=== PATIENT | female | born 1945 | race Caucasian/White ===

== ENCOUNTER 2022-05-02 13:12 | Outpatient (CLI) | payer MEDICARE, SELFPAY ==
[2022-05-02 14:14] LABS: INR 1.2; Prothrombin Time 14.4 Seconds (11.1-14.7)
[2022-05-02 14:15] LABS: Partial Thromboplastin Time 30.4 SECONDS (22.3-36.8)
[2022-05-02 15:54] LABS: Anion Gap 12 mmol/L (8-16); Blood Urea Nitrogen 63 mg/dL (7-17); Calcium 9.7 mg/dL (8.4-10.2); Carbon Dioxide 23 mmol/L (22-30); Chloride 105 mmol/L (98-107); Estimated Glomerular Filt Rate 31; Glucose 152 mg/dL (65-110); Potassium 3.8 mmol/L (3.4-5.0); Sodium 140 mmol/L (137-145)
== END 2022-05-02 13:13 | disposition home or self-care (01) ==
LOC: ANHSURGERY 13:27
PROVIDERS: Anesthesiology; PCP Family Medicine; Visit Provider Urology
DX: E11.9 Type 2 diabetes mellitus without complications (principal); N28.9 Disorder of kidney and ureter, unspecified; Z01.818 Encounter for other preprocedural examination
CPT/HCPCS: 36415; 80048; 85610; 85730

== ENCOUNTER 2022-05-06 01:12 | Day surgery (SDC) | payer MEDICARE, SELFPAY ==
[2022-04-29 14:48] VITALS: BMI 32.5
--- NOTE | 2022-04-29 15:00 | PC.NURSE ---
Report to the Outpatient Waiting Room, entrance under the green pavilion located off [facility], at time _1100_ on date _[id number]_. OR Time: _1pm_. Time changes happen often and if your time is changed the preop area will call you the afternoon before. - You and your visitor will be asked to self-screen and do not enter if you have any COVID symptoms. - Only one visitor and NO children visitors are allowed at this time. - The patient visitor is requested to leave or wait in car when not with patient due to restrictions. - A mask is required within the hospital. Patients may have clear liquids (water, carbonated beverages, clear teas, apple juice) until 3 hours prior to surgery with a maximum of 20 ounces. - No food from midnight until time of surgery Take the following medications with a SIP of water the morning of surgery: ____Pramipexole Medications to discontinue per physician ___Asprin stop 04-29-2022, Vitamin B-12 stop [id number] Please no make-up, nail venezuelan, hairspray, perfume, deodorant, or body powder the day of surgery. No jewelry (including any body piercings) or valuables the day of surgery, leave them at home. Please take a shower or bath the night before, or the morning of, surgery with an antibacterial soap. Wear comfortable, loose fitting clothing. - Jewelry must be removed prior to entering the operating room. Rings and piercings that are not removed may be cut off. - The hospital will not accept responsibility for valuables. - Please leave all valuables, including medications, at home the day of surgery. If you are going home after surgery, a licensed regional tanker truck driver must drive you home. - NO public transportation without another adult. - We recommend that an adult stay with you for 24 hours following discharge. - We also recommend that you do not drive, make important decision, drink alcoholic beverages, or take any drugs that were not prescribed by your health care provider for at least 24 hours after your discharge time. Follow any additional instructions given to you from your surgeon. If you or anyone in your household have experienced Covid symptoms in the past week, please notify your surgeon or the nurse liaison at the phone number below for possible testing. Telephone instructions given to __Patient and Daughter Lyn___and asked if any additional questions and then verbalized understanding. Patient advised to call surgeon office or pre surgery nurse liaison [phone] if any additional questions.
--- NOTE | 2022-05-03 10:21 | PM.IMHP ---
H&P: HPI History of Present Illness Date/Time: 05/03/22 10:21 Chief Complaint: Bladder lesion Narrative: This is a woman with recurrent urinary tract infections. Some of her urine cultures are actually normal. Cystoscopy reveals signs consistent with possible Hunner's ulceration Review of Systems Review of Systems: All systems reviewed & are unremarkable except as noted in HPI and below PMFSH Social History Social History Smoking status: Never smoker Spiritual care concerns: No Meds Home Medications and Allergies Home Medications Medication Instructions Recorded Confirmed Type aspirin 81 mg capsule 81 mg PO DAILY 04/29/22 04/29/22 History atorvastatin 20 mg tablet 20 mg PO QAM 04/29/22 04/29/22 History chlorthalidone 25 mg tablet 12.5 mg PO QAM 04/29/22 04/29/22 History cyanocobalamin (vitamin B-12) 500 500 mcg PO DAILY 04/29/22 04/29/22 History mcg tablet (Vitamin B-12) furosemide 40 mg tablet 40 mg PO QAM 04/29/22 04/29/22 History insulin glargine 100 unit/mL 15 unit subcut QPM 04/29/22 04/29/22 History subcutaneous solution (Lantus U-100 Insulin) melatonin 10 mg tablet 10 mg PO HS 04/29/22 04/29/22 History omeprazole 40 mg capsule,delayed 40 mg PO QAM 04/29/22 04/29/22 History release pramipexole 0.5 mg tablet 0.5 mg PO BID 04/29/22 04/29/22 History Allergies Allergy/AdvReac Type Severity Reaction Status Date / Time Penicillins Allergy Intermediate Rash Verified 04/29/22 14:42 Sulfa (Sulfonamide Allergy Intermediate Rash Verified 04/29/22 14:42 Antibiotics) Exam Narrative: No acute distress Normal breathing Alert right x3 Assessment and Plan Assessment and plan (1) 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 Understands risks of bleeding, infection, lack of efficacy, need for repeat procedures, damage to the bladder. She agrees to proceed
--- NOTE | 2022-05-06 07:16 | WPDHPUPDATE1 ---
History and Physical Update Update Date/Time: 05/06/22 07:16 History and Physical has been reviewed, including an updated exam of the patient. There are NO changes in the patient's condition. Risks, benefits, and alternatives have been discussed and questions answered. Patient agrees to proceed with procedure.
[2022-05-06 12:00] VITALS: BP 130/55; PULSE 67; RESP 16; TEMP 36.6; O2SAT 98
--- NOTE | 2022-05-06 12:04 | WPDANESEPPF ---
Anes - Initial Pre Proc Eval Procedure: Operation Date: 05/06/22 13:00 Proposed Procedures p Cystoscopy Bladder Biopsy with Steroid Injection - Cheo Hilario MD Date/Time: 05/06/22 12:04 Surgeon: Cheo Hilario MD Pre Op Diagnosis: hypervascular lesion of bladder Patient Data Age: 77 Gender: F Height: 1.6 m Weight: 83.2 kg Allergies Allergy/AdvReac Type Severity Reaction Status Date / Time Penicillins Allergy Intermediate Rash Verified 04/29/22 14:42 Sulfa (Sulfonamide Allergy Intermediate Rash Verified 04/29/22 14:42 Antibiotics) Home Medications Medication Instructions Recorded Confirmed Type aspirin 81 mg capsule 81 mg PO DAILY 04/29/22 04/29/22 History atorvastatin 20 mg tablet 20 mg PO QAM 04/29/22 04/29/22 History chlorthalidone 25 mg tablet 12.5 mg PO QAM 04/29/22 04/29/22 History cyanocobalamin (vitamin B-12) 500 500 mcg PO DAILY 04/29/22 04/29/22 History mcg tablet (Vitamin B-12) furosemide 40 mg tablet 40 mg PO QAM 04/29/22 04/29/22 History insulin glargine 100 unit/mL 15 unit subcut QPM 04/29/22 04/29/22 History subcutaneous solution (Lantus U-100 Insulin) melatonin 10 mg tablet 10 mg PO HS 04/29/22 04/29/22 History omeprazole 40 mg capsule,delayed 40 mg PO QAM 04/29/22 04/29/22 History release pramipexole 0.5 mg tablet 0.5 mg PO BID 04/29/22 04/29/22 History Patient hx anesthesia problems: other (low bp) Family hx anesthesia problems: none Results Review: All pre-operative results and documents have been reviewed as part of the pre-operative evaluation. [facility] Past Medical History Medical History (Updated 05/06/22 @ 12:06 by Mark Blackburn MD) Arthritis Bronchiectasis Depression Hyperlipidemia Hypertension Hypothyroid NALLELY (obstructive sleep apnea) Social History Social History Smoking status: Never smoker Living arrangements: with family Spiritual care concerns: No Anes - Eval Final PreProcedure Day of Procedure 05/06/22 12:04 Patient weight: obese Heart: regular rate and rhythm Lungs: decreased breath sounds Airway: Mallampati scale class II Neurological: alert and oriented Last oral intake: >/= 8 hours ASA classification: III Emergent: no Anesthetic plan: proceed Anesthesia type and monitoring: general GIVS and standard monitoring Results Review: All pre-operative results and documents have been reviewed as part of the pre-operative evaluation. Informed Consent: The patient's anesthetic plan and its attendant risks and benefits were discussed with the patient/family/POA. Questions were solicited and answers provided to the satisfaction of the patient/family/POA.
[2022-05-06 12:23] LABS: Glucose Point of Care 103 mg/dl (65-105)
[2022-05-06] MEDS: LACTATED RINGERS 1,000 ML 30 ML IV CONT (12:30)
[2022-05-06] MEDS: ceFAZolin 2 GM/D5W 50 ML 2 GM/50 ML BAG IVPB (12:47)
[2022-05-06] MEDS: LIDOCAINE HCL 2% GEL UROJET 10 ML PKG MUCOUS MEM (12:54)
[2022-05-06] MEDS: TRIAMCINOLONE ACET INJ 40 MG/ML VIAL 5 MG IM (12:59)
--- NOTE | 2022-05-06 13:13 | W.PM.PROC2 ---
Procedure Note - Detailed Date of Procedure 05/06/22 Pre-op Diagnosis hypervascular lesion of bladder Post-op Diagnosis Same Procedure Performed Cystoscopy, bladder biopsy, steroid injection Surgeon Cheo Hilario MD Anesthesia MAC Indications A woman with bladder pain and urgency. Cystoscopic findings are consistent with Hunner's ulceration. She is here today for biopsy and steroid injection. For of bleeding, infection, damage to the urinary tract, lack of cure of symptoms, lack of improvement or symptoms, need for repeat procedures, damage to the urinary tract. She agrees to proceed Findings Areas of inflammation on the dome consistent with Hunner's ulceration Description of Procedure She was correctly identified. Informed consent obtained. She from the operating room. She was given MAC anesthesia. She was placed in dorsal lithotomy position. All pressure points were padded. She was given appropriate perioperative antibiotics. A time-out performed. I examined the bladder. She had no trabeculations. Ureteral orifices were normal. There was no stones. On the back wall of the bladder there were areas consistent with Hunner's ulceration. This was remote from both ureteral orifice. This area was biopsied. It was sent for pathologic analysis. I fulgurated all lesions. I then injected my steroids. 2 mg total at a concentration of 40 milligrams/mill into the ulcerated areas. I reefed fulgurated though injection sites. Again all fulguration was done away from the ureteral orifices. There was no bleeding her low insufflation pressures. The bladder was drained. She was awakened transferred to PACU in stable condition Implants None Estimated Blood Loss 1 Pathology Yes (Bladder biopsy) Complications No immediate complications Condition Stable Disposition PACU
[2022-05-06 13:21] VITALS: BP 138/48; PULSE 58; RESP 12; O2SAT 95
[2022-05-06 13:29] LABS: Glucose Point of Care 116 mg/dl (65-105)
[2022-05-06 13:50] VITALS: BP 121/52; PULSE 72; RESP 14; O2SAT 99
[2022-05-06 14:20] VITALS: BP 118/52; PULSE 74; RESP 14
== END 2022-05-06 14:40 | disposition home or self-care (01) ==
PROVIDERS: PCP Family Medicine; Visit Provider Urology
PROC: 0TBB8ZX Excision of Bladder, Via Natural or Artificial Opening Endoscopic, Diagnostic (ICD-10-PCS; CPT 52204; principal; 2022-05-06 13:00)
DX: N30.10 Interstitial cystitis (chronic) without hematuria (principal); E78.5 Hyperlipidemia, unspecified; I10 Essential (primary) hypertension; E03.9 Hypothyroidism, unspecified; G47.33 Obstructive sleep apnea (adult) (pediatric); F32.A Depression, unspecified; E66.9 Obesity, unspecified; Z68.32 Body mass index [BMI] 32.0-32.9, adult; Z79.82 Long term (current) use of aspirin; Z79.4 Long term (current) use of insulin
CPT/HCPCS: 52204; 52283; 82948; 88305; A9270; J0690; J2704; J3010; J3301; J7120

== ENCOUNTER 2023-11-14 01:50 | Day surgery (SDC) | payer MEDICARE, SELFPAY ==
[2023-10-31 13:18] VITALS: BMI 33.3
--- NOTE | 2023-10-31 13:52 | PC.NURSE ---
Addendum entered by Madeleine Espinoza RN 10/31/23 16:15: CORRECTED MED LIST RECEIVED - [facility] CONTACTED (JOSEPHINE OSULLIVAN R.N.) AND INFORMED PT CAN HAVE TYLENOL IF NEEDED THE DAY OF SURGERY - UNDERSTANDING VOICED Original Note: PRE-OP INSTRUCTIONS, PLEASE READ CAREFULLY Report to the Outpatient Waiting Room, entrance under the green pavilion located off [facility], at time _0945_ on date _11/14/23_. Planned Procedure Time: _1145_. Time changes happen often and if your time is changed the preop area will call you the afternoon before. - You and your visitor will be asked to self-screen and do not enter if you have any COVID symptoms. - A mask is optional within the hospital at this time. Patients may have clear liquids (water, carbonated beverages, clear teas, apple juice) until 3 hours prior to surgery (0845 AM) with a maximum of 20 ounces. - No food from midnight until time of surgery Take the following medications with a SIP of water the morning of surgery: _CARVEDILOL, PRAMIPEXOLE_ DO NOT STOP ANY OF YOUR OTHER PRESCRIPTION MEDICATIONS PRIOR TO SURGERY ?EXCEPT THE FOLLOWING Medications to discontinue per SOLANO - _ASPIRIN 7 DAYS PRIOR TO SURGERY, Date to take last dose 11/06/23_ Please no make-up, nail greek, hairspray, perfume, deodorant, or body powder the day of surgery. No jewelry (including any body piercings) or valuables the day of surgery, leave them at home. Please take a shower or bath the night before, or the morning of, surgery with an antibacterial soap. Wear comfortable, loose fitting clothing. - Jewelry must be removed prior to entering the operating room. Rings and piercings that are not removed may be cut off. - The hospital will not accept responsibility for valuables. - Please leave all valuables, including medications, at home the day of surgery. If you are going home after surgery, a licensed rickshaw driver must drive you home. - NO public transportation without another adult if you receive anesthesia. - We recommend that an adult stay with you for 24 hours following discharge. - We also recommend that you do not drive, make important decision, drink alcoholic beverages, or take any drugs that were not prescribed by your health care provider for at least 24 hours after your discharge time. Follow any additional instructions given to you from your surgeon. If you or anyone in your household have experienced Covid symptoms in the past week, please notify your surgeon or the nurse liaison at the phone number below for possible testing. Telephone instructions FAXED/given to _[facility]_and asked if any additional questions and then verbalized understanding. Patient advised to call surgeon office or pre surgery nurse liaison [phone] if any additional questions.
--- NOTE | 2023-11-09 11:53 | PM.IMHP ---
H&P: HPI History of Present Illness Date/Time: 11/09/23 11:53 Chief Complaint: Hunner Ulcer Narrative: ready for another steroid injection Review of Systems Review of Systems: All systems reviewed & are unremarkable except as noted in HPI and below PMFSH Past Medical History Medical History Arthritis Bronchiectasis Depression Hyperlipidemia Hypertension Hypothyroid NALLELY (obstructive sleep apnea) Social History Social History Smoking status: Never smoker Second hand tobacco smoke exposure: No Alcohol intake: never Substance use: never Substance use type: does not use Living arrangements: assisted living Additional living arrangements comments: [facility] [phone] Spiritual care concerns: No Meds Home Medications and Allergies Home Medications Medication Instructions Recorded Confirmed Type aspirin 81 mg capsule 81 mg PO DAILY 04/29/22 10/31/23 History atorvastatin 20 mg tablet 20 mg PO HS 04/29/22 10/31/23 History insulin glargine 100 unit/mL 28 unit HS 04/29/22 10/31/23 History subcutaneous solution (Lantus U-100 Insulin) omeprazole 40 mg capsule,delayed 40 mg PO QAM 04/29/22 10/31/23 History release pramipexole 0.5 mg tablet 0.5 mg PO BID 04/29/22 10/31/23 History acetaminophen 500 mg tablet 500 mg PO Q6H PRN Pain 10/31/23 10/31/23 History allopurinol 100 mg tablet 200 mg DAILY 10/31/23 10/31/23 History calcitriol 0.25 mcg capsule 0.25 mcg EVERY OTHER DAY 10/31/23 10/31/23 History carvedilol 6.25 mg tablet 6.25 mg BID 10/31/23 10/31/23 History cholecalciferol (vitamin D3) 50 50 mcg PO DAILY 10/31/23 10/31/23 History mcg (2,000 unit) capsule cyanocobalamin (vitamin B-12) 500 500 mcg PO DAILY 10/31/23 10/31/23 History mcg tablet empagliflozin 10 mg tablet 10 mg DAILY 10/31/23 10/31/23 History (Jardiance) furosemide 40 mg tablet 40 mg PO DAILY 10/31/23 10/31/23 History hydrocodone 5 mg-acetaminophen 325 See Rx Instructions .Route 10/31/23 10/31/23 History mg tablet .COMPLEX PRN Pain melatonin 10 mg tablet 20 mg PO HS PRN Sleep 10/31/23 10/31/23 History naloxone 4 mg/actuation nasal spray 4 mg intranasal Q3M PRN 10/31/23 10/31/23 History UNRESPONSIVENESS ondansetron HCl 8 mg tablet 8 mg Q8H PRN Nausea 10/31/23 10/31/23 History sodium bicarbonate 650 mg tablet 650 mg PO TID 10/31/23 10/31/23 History Allergies Allergy/AdvReac Type Severity Reaction Status Date / Time Penicillins Allergy Intermediate Rash Verified 10/31/23 13:16 Sulfa (Sulfonamide Allergy Intermediate Rash Verified 10/31/23 13:16 Antibiotics) Exam Narrative: NAD normal breathing A+O x3 Assessment and Plan Assessment and plan (1) Hunner's ulcer: Code(s): 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
--- NOTE | 2023-11-14 04:37 | WPDHPUPDATE1 ---
History and Physical Update Update Date/Time: 11/14/23 04:37 History and Physical has been reviewed, including an updated exam of the patient. There are NO changes in the patient's condition. Risks, benefits, and alternatives have been discussed and questions answered. Patient agrees to proceed with procedure.
--- NOTE | 2023-11-14 08:46 | WPDANESEPPF ---
Anes - Initial Pre Proc Eval Procedure: Operation Date: 11/14/23 10:30 Proposed Procedures p Cystoscopy, Bladder Biopsy with Steroid Injection - Cheo Hilario MD Date/Time: 11/14/23 08:46 Surgeon: Cheo Hilario MD Pre Op Diagnosis: hypervascular lesion of urinary bladder Patient Data Age: 78 Gender: F Height: 1.6 m Weight: 85.45 kg Allergies Allergy/AdvReac Type Severity Reaction Status Date / Time Penicillins Allergy Intermediate Rash Verified 11/14/23 09:11 Sulfa (Sulfonamide Allergy Intermediate Rash Verified 11/14/23 09:11 Antibiotics) Home Medications Medication Instructions Recorded Confirmed Type aspirin 81 mg capsule 81 mg PO DAILY 04/29/22 11/14/23 History atorvastatin 20 mg tablet 20 mg PO HS 04/29/22 10/31/23 History insulin glargine 100 unit/mL 28 unit HS 04/29/22 10/31/23 History subcutaneous solution (Lantus U-100 Insulin) omeprazole 40 mg capsule,delayed 40 mg PO QAM 04/29/22 10/31/23 History release pramipexole 0.5 mg tablet 0.5 mg PO BID 04/29/22 10/31/23 History acetaminophen 500 mg tablet 500 mg PO Q6H PRN Pain 10/31/23 10/31/23 History allopurinol 100 mg tablet 200 mg DAILY 10/31/23 10/31/23 History calcitriol 0.25 mcg capsule 0.25 mcg EVERY OTHER DAY 10/31/23 10/31/23 History carvedilol 6.25 mg tablet 6.25 mg BID 10/31/23 10/31/23 History cholecalciferol (vitamin D3) 50 50 mcg PO DAILY 10/31/23 10/31/23 History mcg (2,000 unit) capsule cyanocobalamin (vitamin B-12) 500 500 mcg PO DAILY 10/31/23 10/31/23 History mcg tablet empagliflozin 10 mg tablet 10 mg DAILY 10/31/23 10/31/23 History (Jardiance) furosemide 40 mg tablet 40 mg PO DAILY 10/31/23 10/31/23 History hydrocodone 5 mg-acetaminophen 325 See Rx Instructions .Route 10/31/23 10/31/23 History mg tablet .COMPLEX PRN Pain melatonin 10 mg tablet 20 mg PO HS PRN Sleep 10/31/23 10/31/23 History naloxone 4 mg/actuation nasal spray 4 mg intranasal Q3M PRN 10/31/23 10/31/23 History UNRESPONSIVENESS ondansetron HCl 8 mg tablet 8 mg Q8H PRN Nausea 10/31/23 10/31/23 History sodium bicarbonate 650 mg tablet 650 mg PO TID 10/31/23 10/31/23 History Patient hx anesthesia problems: none Family hx anesthesia problems: none Results Review: All pre-operative results and documents have been reviewed as part of the pre-operative evaluation. [facility] Past Medical History Medical History (Updated 11/14/23 @ 08:46 by Ned Wade DO) Arthritis Bronchiectasis CHF (congestive heart failure) CKD (chronic kidney disease) Depression Hyperlipidemia Hypertension Hypothyroid NALLELY (obstructive sleep apnea) Social History Social History Smoking status: Never smoker Second hand tobacco smoke exposure: No Alcohol intake: never Substance use: never Substance use type: does not use Living arrangements: assisted living Additional living arrangements comments: [facility] [phone] Spiritual care concerns: No Anes - Eval Final PreProcedure Day of Procedure 11/14/23 08:46 Patient weight: obese Heart: regular rate and rhythm Lungs: clear to auscultation Airway: Mallampati scale class II Neurological: alert and oriented Last oral intake: >/= 8 hours ASA classification: IV Emergent: no Anesthetic plan: proceed Anesthesia type and monitoring: general GIVS and standard monitoring Results Review: All pre-operative results and documents have been reviewed as part of the pre-operative evaluation. Informed Consent: The patient's anesthetic plan and its attendant risks and benefits were discussed with the patient/family/POA. Questions were solicited and answers provided to the satisfaction of the patient/family/POA.
[2023-11-14 09:08] VITALS: BP 185/87; PULSE 71; RESP 16; TEMP 36.3; O2SAT 100
[2023-11-14] MEDS: LACTATED RINGERS 1,000 ML 30 ML IV CONT (09:15)
[2023-11-14 09:27] LABS: Glucose Point of Care 84 mg/dl (65-105)
[2023-11-14] MEDS: ceFAZolin 2 GM/D5W 50 ML 2 GM/50 ML BAG IVPB (10:01)
[2023-11-14] MEDS: TRIAMCINOLONE ACET INJ 40 MG/ML VIAL 200 MG IM (10:02)
[2023-11-14] MEDS: LIDOCAINE HCL 2% GEL UROJET 10 ML PKG MUCOUS MEM (10:03)
--- NOTE | 2023-11-14 10:10 | W.PM.PROC2 ---
Procedure Note - Detailed Date of Procedure 11/14/23 Pre-op Diagnosis hypervascular lesion of urinary bladder Post-op Diagnosis Same Procedure Performed Cystoscopy, bladder biopsy, steroid injection Surgeon Cheo Hilario MD Anesthesia MAC and Local (Uro jet) Indications History of recurrent Hunner's ulcer variety interstitial cystitis Findings Ileal ulceration on the back wall and dome of bladder. Surrounding squamous metaplasia Description of Procedure She was correctly identified. Informed consent obtained. From the operating room. She was given MAC anesthesia. She was given lidocaine jelly. She was prepped draped sterile fashion. Time-out performed. Examination of bladder revealed a small capacity bladder. She had area of Hunner's ulceration on the back wall the bladder and near the dome. Two areas total. There seemed to be some surrounding squamous metaplasia. I biopsied the area with squamous metaplasia. I fulgurated the lesions. I then injected Kenalog. 20 mg total a concentration of 40 milligrams/mL. I fulgurated the injection sites. All fulguration was done away from the ureteral orifice. Her bladder was drained. Under low insufflation pressures there was no bleeding. She was awakened transferred to PACU in stable condition Estimated Blood Loss 2 Pathology Yes (Bladder biopsy) Complications No immediate complications Condition Stable
[2023-11-14 10:13] VITALS: BP 100/41; PULSE 73; RESP 15; O2SAT 97
[2023-11-14 10:34] LABS: Glucose Point of Care 85 mg/dl (65-105)
[2023-11-14 10:40] VITALS: BP 101/42; PULSE 66; RESP 15; O2SAT 97
[2023-11-14 11:10] VITALS: BP 137/52; PULSE 71; RESP 15
--- NOTE | 2023-11-14 11:35 | SUR.PHASEII ---
ASSISTED WITH DRESSING.
== END 2023-11-14 11:25 | disposition home or self-care (01) ==
PROVIDERS: PCP Family Medicine; Visit Provider Urology
PROC: 0TBB8ZX Excision of Bladder, Via Natural or Artificial Opening Endoscopic, Diagnostic (ICD-10-PCS; CPT 52204; principal; 2023-11-14 10:30)
DX: N30.10 Interstitial cystitis (chronic) without hematuria (principal); I13.0 Hypertensive heart and chronic kidney disease with heart failure and stage 1 through stage 4 chronic kidney disease, or unspecified chronic kidney disease; I50.9 Heart failure, unspecified; E78.5 Hyperlipidemia, unspecified; N18.9 Chronic kidney disease, unspecified; E03.9 Hypothyroidism, unspecified; G47.33 Obstructive sleep apnea (adult) (pediatric); F32.A Depression, unspecified; E66.9 Obesity, unspecified; Z68.31 Body mass index [BMI] 31.0-31.9, adult; Z79.82 Long term (current) use of aspirin; Z79.4 Long term (current) use of insulin; Z79.84 Long term (current) use of oral hypoglycemic drugs; Z79.891 Long term (current) use of opiate analgesic
CPT/HCPCS: 52204; 52283; 82948; 88305; J0690; J1100; J2405; J2704; J3010; J3301; J7120